=== PATIENT | female | born 1965 | race Two or more races ===

== ENCOUNTER 2018-04-27 16:28 | Emergency (ER) | payer OTHER ==
[~2018-04-27] VITALS: Ht 172.7 cm; Wt 95.3 kg
[2018-04-27 16:52] VITALS: BP 145/73
[2018-04-27] MEDS ORDERED: NAPROXEN 500 MG TABLET PO STA (16:55)
[2018-04-27] MEDS ORDERED: HYDROcodone/APAP 5/325MG 1 TAB TABLET PO ONE (17:00)
[2018-04-27] MEDS ORDERED: CYCLOBENZAPRINE 10 MG TABLET. PO ONE (17:00)
[2018-04-27] MEDS ORDERED: predniSONE 20 MG TABLET PO ONE (17:00)
[2018-04-27] MEDS ORDERED: METH4TAB2 PO (17:02)
[2018-04-27] MEDS ORDERED: CYCL10TA2 PO (17:02)
[2018-04-27] MEDS ORDERED: HYDR-971 PO (17:02)
[2018-04-27] MEDS ORDERED: NAPR500T8 PO (17:02)
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
== END 2018-04-27 17:20 | disposition home or self-care (01) ==
LOC: ER 16:28
DX: S13.9XXA Sprain of joints and ligaments of unspecified parts of neck, initial encounter (principal); M54.5 Low back pain; V49.9XXA Car occupant (driver) (passenger) injured in unspecified traffic accident, initial encounter; Y93.89 Activity, other specified; Y92.488 Other paved roadways as the place of occurrence of the external cause; Y99.8 Other external cause status
CPT/HCPCS: 99284; J7512